=== PATIENT | male | born 1995 | race African-American/Black ===

== ENCOUNTER 2017-10-26 12:05 | Emergency (ER) | payer OTHER, SELFPAY ==
--- NOTE | 2017-10-26 12:42 | RAD ---
TWO VIEWS CHEST: HISTORY: Cough and chest pain. FINDINGS: PA and lateral views of the chest were obtained on 10/26/17. Comparison is made to previous exam fro m 09/30/15. Two views chest demonstrate the lungs to be well aerated. No evidence of active intrathoracic diseas e is seen. No evidence of effusions, pneumonia, or pneumothorax seen. IMPRESSION: Normal 2 views chest. POS: [facility]
[2017-10-26] MEDS ORDERED: Ibuprofen 200 MG TAB ONE (13:18)
== END 2017-10-26 13:51 | disposition home or self-care (01) ==
LOC: ERS 12:05
DX: M94.0 Chondrocostal junction syndrome [Tietze] (principal)
CPT/HCPCS: 71020; 93005

== ENCOUNTER 2018-04-18 17:21 | Emergency (ER) | payer SELFPAY | END 2018-04-18 18:43 | disposition home or self-care (01) | LOC: ERS 17:21 | DX: J01.90 Acute sinusitis, unspecified (principal); B96.89 Other specified bacterial agents as the cause of diseases classified elsewhere | CPT/HCPCS: 93005 ==

== ENCOUNTER 2018-06-18 21:33 | Emergency (ER) | payer SELFPAY | END 2018-06-18 22:31 | disposition left against medical advice (07) | LOC: ERS 21:33 | DX: Z53.21 Procedure and treatment not carried out due to patient leaving prior to being seen by health care provider (principal) ==

== ENCOUNTER 2018-06-27 18:14 | Emergency (ER) | payer SELFPAY | END 2018-06-27 19:52 | disposition home or self-care (01) | LOC: ERS 18:14 | DX: M25.511 Pain in right shoulder (principal); F17.210 Nicotine dependence, cigarettes, uncomplicated; X50.9XXA Other and unspecified overexertion or strenuous movements or postures, initial encounter | CPT/HCPCS: 93005 ==

== ENCOUNTER 2021-05-01 20:45 | Emergency (ER) | payer BC, SELFPAY ==
[2021-05-01 23:37] LABS: SARS-CoV-2 NAA Rapid Test Not Detected (NotDetected)
== END 2021-05-01 22:30 | disposition home or self-care (01) ==
LOC: ERS 20:45
DX: J06.9 Acute upper respiratory infection, unspecified (principal); Z20.822 Contact with and (suspected) exposure to COVID-19; J45.909 Unspecified asthma, uncomplicated; F17.210 Nicotine dependence, cigarettes, uncomplicated
CPT/HCPCS: 99283; U0002; U0005